=== PATIENT | female | born 1985 | race Hispanic/Latino ===

== ENCOUNTER 2024-12-04 13:06 | Emergency (ER) | payer OTHER ==
[~2024-12-04] VITALS: Ht 157.5 cm; Wt 80.5 kg
[2024-12-04 14:09] VITALS: PULSE 83; RESP 16; TEMP 98.3; O2SAT 98
== END 2024-12-04 14:09 | disposition home or self-care (01) ==
LOC: FSED 13:11
DX: S90.31XA Contusion of right foot, initial encounter (principal); W20.8XXA Other cause of strike by thrown, projected or falling object, initial encounter; Y92.89 Other specified places as the place of occurrence of the external cause; K21.9 Gastro-esophageal reflux disease without esophagitis
CPT/HCPCS: 99284